=== PATIENT | female | born 2000 | race African-American/Black ===

== ENCOUNTER 2018-05-11 17:46 | Emergency (ER) | payer OTHER ==
[~2018-05-11] VITALS: Ht 172.7 cm; Wt 68.0 kg
[2018-05-11 18:00] VITALS: BP 138/72
[2018-05-11 19:05] LABS: APPEARANCE,URINE CLEAR; BILIRUBIN, URINE NEGATIVE (NEGATIVE); COLOR,URINE PALE YELLOW; GLUCOSE, URINE (UA) NEGATIVE (NEGATIVE); KETONES,URINE NEGATIVE (NEGATIVE); LEUKOCYTE ESTERASE ,URINE 1+ (NEGATIVE); NITRITE,URINE NEGATIVE (NEGATIVE); PH,URINE 6.5 (4.5-8.0); PROTEIN,URINE 1+ (NEGATIVE); UROBILINOGEN,URINE NORMAL MG/DL (0.0-1.0)
--- NOTE | 2018-05-11 19:14 | Emergency Room Report ---
History of Present Illness General Chief Complaint: Vaginal Source: Patient Present Illness HPI 18-year-old female presents to the emergency department complaining of white vaginal discharge without odor 3 days. Patient denies recent unprotected intercourse. Patient denies suspicion of STDs. Patient reports moderate itching and 5/10 in severity dysuria. Patient denies obvious rash, genital lesions or swollen tender lymph nodes. She denies fevers or chills. She denies abdominal or adnexal pain or tenderness. She denies . Allergies: Coded Allergies: No Known Allergies (Unverified , 05/11/18) Patient History Past Medical History: see triage record Past Surgical History: none Pertinent Family History: none Last Menstrual Period: 04/16/18 Now: No Reviewed Nursing Documentation: PMH: Agreed; PSxH: Agreed Nursing Documentation-PMH Past Medical History: No Stated History Review of Systems All Other Systems: negative except mentioned in HPI Physical Exam Vital Signs Date Time Temp Pulse Resp B/P (MAP) Pulse Ox O2 Delivery O2 Flow Rate FiO2 05/11/18 17:52 98.4 108 18 132/75 100 Room Air Sp02 EP Interpretation: reviewed, normal General Appearance: no apparent distress, alert, GCS 15, non-toxic Head: normocephalic, atraumatic ENT: hearing grossly normal, normal voice Neck: full range of motion Respiratory: lungs clear, normal breath sounds, speaking full sentences Cardiovascular #1: regular rate, rhythm Gastrointestinal: normal bowel sounds, non tender, soft, non-distended, no guarding Rectal: deferred Genitourinary: normal inspection, no CVA tenderness, adnexa normal, ext genitalia/vag normal, other - NO CMT. Thin milky white vaginal d/c. Musculoskeletal: back normal, gait/station normal, normal range of motion, non- tender Neurologic: alert, oriented x3, responsive, motor strength/tone normal, sensory intact, speech normal, grossly normal Psychiatric: judgement/insight normal Skin: normal color, no rash, warm/dry, well hydrated Lymphatic: no adenopathy Medical Decision Making PA Attestation Dr. Sheldon is my supervising Physician whom patient management has been discussed with. Diagnostic Impression: Primary Impression: Bacterial vaginosis ER Course 18-year-old female presents to the emergency department complaining of white vaginal discharge without odor 3 days. Patient denies recent unprotected intercourse. Patient denies suspicion of STDs. Patient reports moderate itching and 5/10 in severity dysuria. Patient denies obvious rash, genital lesions or swollen tender lymph nodes. She denies fevers or chills. She denies abdominal or adnexal pain or tenderness. She denies . Ddx considered but are not limited to UTi , Pyelo, STI, Stone, Cystitis, vaginal laceration, vaginitis. Vital signs: are WNL, pt. is afebrile H& PE are most consistent with: Vaginitis ORDERS: - UA labs are WNL and are attached - Wet Mount : Positive for clue cells ED INTERVENTIONS: -None required at this time. DISCHARGE: At this time pt. is stable for d/c to home. Will provide printed patient care instructions, and any necessary prescriptions. Care plan and follow up instructions have been discussed with the patient prior to discharge. discussed with the patient prior to discharge. Labs Test 05/11/18 18:20 Urine Color Pale yellow Urine Appearance Clear Urine pH 6.5 (4.5-8.0) Urine Specific [place] 1.005 (1.005-1.035) Urine Protein 1+ (NEGATIVE) Urine Glucose (UA) Negative (NEGATIVE) Urine Ketones Negative (NEGATIVE) Urine Blood Negative (NEGATIVE) Urine Nitrite Negative (NEGATIVE) Urine Bilirubin Negative (NEGATIVE) Urine Urobilinogen Normal MG/DL (0.0-1.0) Urine Leukocyte Esterase 1+ (NEGATIVE) Urine RBC 0-2 /HPF (0 - 2) Urine WBC 2-4 /HPF (0 - 2) Urine Squamous Epithelial Cells Few /LPF (NONE/OCC) Urine Bacteria Few /HPF (NONE) Last Vital Signs Date Time Temp Pulse Resp B/P (MAP) Pulse Ox O2 Delivery O2 Flow Rate FiO2 05/11/18 17:52 98.4 108 18 132/75 100 Room Air Disposition: HOME, SELF-CARE Condition: Stable Scripts Metronidazole* (FLAGYL*) 500 Mg Tablet 500 MG ORAL BID, #14 TAB 0 Refills Prov: Jacki Hdez 05/11/18 Patient Instructions: Bacterial Vaginosis, [id number] Additional Instructions: Take medications as directed. Follow up with a Primary Care Provider in 3-5 days, even if your symptoms have resolved. --Please review list of primary care clinics, if you do not already have a primary care provider Return sooner to ED if new symptoms occur, or current symptoms become worse. Do not drink alcohol, drive, or operate heavy machinery while taking [ ] as this may cause drowsiness. - Please note that this Emergency Department Report was dictated using [employer] operator technology software, occasionally this can lead to erroneous entry secondary to interpretation by the dictation equipment. Jacki Hdez May 11, 2018 19:14
[2018-05-11 19:15] VITALS: BP 138/72
[2018-05-11] MEDS ORDERED: METRONIDAZOLE500 MG ORAL (19:16)
== END 2018-05-11 20:15 | disposition home or self-care (01) ==
LOC: EMR 19:40
DX: N76.0 Acute vaginitis (principal); B96.89 Other specified bacterial agents as the cause of diseases classified elsewhere
CPT/HCPCS: 81003; 87210; 99283

== ENCOUNTER 2018-05-18 09:47 | Emergency (ER) | payer OTHER ==
[~2018-05-18] VITALS: Ht 172.7 cm; Wt 68.0 kg
[~2018-05-18 09:47] MED LIST: METRONIDAZOLE500 MG ORAL
[2018-05-18 10:16] VITALS: BP 130/74
[2018-05-18] MEDS ORDERED: DOXYCYCLINE MO100 MG ORAL (10:19)
[2018-05-18] MEDS ORDERED: ACYCLOVIR800 MG ORAL (10:19)
[2018-05-18] MEDS ORDERED: Lidocaine 1% MPF 10mg/ml 5ml INJ ONE (10:30)
[2018-05-18 10:53] VITALS: BP 130/74
--- NOTE | 2018-05-18 14:59 | Emergency Room Report ---
History of Present Illness General Chief Complaint: Vaginal Source: Patient Present Illness HPI Patient is a 18-year-old female presented after increased vaginal the bumps as well as increased pain. Patient gradual onset of symptoms. Patient noted have increased the painful rash to her vulvar area. She reportedly had recent intercourse with someone with similar lesions. She reports having recent treatment for bacterial vaginosis. Allergies: Coded Allergies: No Known Allergies (Unverified , 05/11/18) Patient History Past Medical History: see triage record Last Menstrual Period: 05/10/18 Now: No : 0 Reviewed Nursing Documentation: PMH: Agreed; PSxH: Agreed Nursing Documentation-PMH Past Medical History: No Stated History Review of Systems All Other Systems: negative except mentioned in HPI Physical Exam Vital Signs Date Time Temp Pulse Resp B/P (MAP) Pulse Ox O2 Delivery O2 Flow Rate FiO2 05/18/18 09:50 98.4 105 18 130/74 99 Room Air General Appearance: well appearing, no apparent distress, alert, GCS 15 Head: normocephalic, atraumatic ENT: hearing grossly normal, normal voice Neck: full range of motion, supple Respiratory: no respiratory distress, speaking full sentences Musculoskeletal: no calf tenderness Neurologic: normal gait Psychiatric: mood/affect normal Skin: other - vulvar lesions, some ulcerations near labia Medical Decision Making Diagnostic Impression: Primary Impression: Skin rash Additional Impression: Exposure to STD ER Course The patient presented for vaginal rash. Differential diagnosis included was not limited to a herpes, yeast infection, physiologic discharge, bacterial vaginosis, gonorrhea, Chlamydia, among others. Patient has a benign exam and does not appear to require any further imaging or laboratory testing at this time. The patient be empirically treated for herpes as well as gonorrhea and chlamydia. The patient is advised to follow up with primary care doctor in 1- 2 days. Patient is advised to return if any worsening condition or if any changes in status that are concerning. This report is dictated with [employer] advisor software which may occasionally lead to discrepancies related to use of this software. Labs Test 05/18/18 09:55 Urine HCG, Qualitative Negative (NEGATIVE) Last Vital Signs Date Time Temp Pulse Resp B/P (MAP) Pulse Ox O2 Delivery O2 Flow Rate FiO2 05/18/18 10:53 98.4 78 18 130/74 99 Room Air Status: improved Disposition: HOME, SELF-CARE Condition: Stable Scripts Doxycycline Monohydrate* (DOXYCYCLINE MONOHYDRATE*) 100 Mg Capsule 100 MG ORAL Q12H, #14 CAP 0 Refills Prov: Perfecto Salmon MD 05/18/18 Acyclovir* (ZOVIRAX*) 800 Mg Tablet 800 MG ORAL FIVE TIMES A DAY, #35 TAB Prov: Perfecto Salmon MD 05/18/18 Referrals: SANDI [facility]MAN PLN,REFERRI (PCP) Patient Instructions: Sexually Transmitted Disease Perfecto Salmon MD May 18, 2018 14:59
== END 2018-05-18 10:55 | disposition home or self-care (01) ==
LOC: EMR 10:26
DX: R21 Rash and other nonspecific skin eruption (principal); N76.6 Ulceration of vulva; Z20.2 Contact with and (suspected) exposure to infections with a predominantly sexual mode of transmission
CPT/HCPCS: 81025; 96372; 99283; J0696